=== PATIENT | female | born 1975 | race Caucasian/White ===

== ENCOUNTER 2024-12-27 08:05 | Emergency (ER) | payer OTHER ==
[~2024-12-27] VITALS: Ht 162.6 cm; Wt 61.2 kg
[2024-12-27] MEDS ORDERED: ACETAMINOPHEN500 M1 PO (11:51)
== END 2024-12-27 12:29 | disposition home or self-care (01) ==
LOC: ER 08:05
DX: G89.11 Acute pain due to trauma (principal); S99.822A Other specified injuries of left foot, initial encounter

== ENCOUNTER 2024-12-31 07:58 | Day surgery (SDC) | payer OTHER ==
[~2024-12-31 07:58] MED LIST: ACETAMINOPHEN500 M1 PO
[2024-12-31] MEDS ORDERED: DIPHENHYDRAMINE HCL 50 MG/ML VIAL 1ML IV ONE (13:00)
[2024-12-31] MEDS ORDERED: fentaNYL CITRATE 50 MCG/ML AMPUL IV PUSH ONE (13:00)
[2024-12-31] MEDS ORDERED: ONDANSETRON HCL 2 MG/ML VIAL IV ONE (13:00)
[2024-12-31] MEDS ORDERED: MIDAZOLAM HCL 2 MG/2 ML VIAL IV ONE (13:00)
== END 2024-12-31 15:27 | disposition home or self-care (01) ==
LOC: AMB-ENDOS 07:58
PROVIDERS: ATTEND Colon & Rectal Surgery
DX: K63.5 Polyp of colon (principal); R19.4 Change in bowel habit; Z12.11 Encounter for screening for malignant neoplasm of colon